=== PATIENT | female | born 1975 | race Two or more races ===

== ENCOUNTER 2020-07-21 08:32 | Outpatient (CLI) | payer OTHER | END 2020-07-21 08:40 | disposition home or self-care (01) | LOC: RX STUDY 08:32 | DX: R13.12 Dysphagia, oropharyngeal phase (principal) ==

== ENCOUNTER 2020-08-05 08:55 | Outpatient (CLI) | payer OTHER | END 2020-08-05 09:17 | disposition home or self-care (01) | LOC: NUCLEAR 08:55 | DX: R11.2 Nausea with vomiting, unspecified (principal) | CPT/HCPCS: 78264; A9541 ==